=== PATIENT | female | born 1945 | race Caucasian/White ===

== ENCOUNTER 2019-01-06 06:00 | Day surgery (SDC) | payer OTHER ==
[~2019-01-06 06:00] MED LIST: ASA81 MG PO; ENALAPRIL MALEA10 MG PO; LEVO-T25 MCG PO; SIMVASTATIN20 MG PO; SINGULAIR10 MG PO
== END 2019-01-06 14:45 | disposition home or self-care (01) ==
LOC: CIR.AMB 06:00
DX: M47.26 Other spondylosis with radiculopathy, lumbar region (principal)